=== PATIENT | male | born 1940 | race African-American/Black ===

== ENCOUNTER → 2019-07-24 | Outpatient (CLI) | payer MEDICARE, MEDICAID ==
[~2019-07-24] MED LIST: CEFAZOLIN SODIUM 1000MG/VIAL IV SCH; DOCUSATE SODIUM 100MG CAPSULE PO SCH; DUTA0.5C16 PO; GARL200T PO; HYDROCODONE/ACETAMINOPHEN 10/325MG TABLET PO PRN; HYDROCODONE/ACETAMINOPHEN 5/325MG TABLET PO PRN; LEVOFLOXACIN 500MG TABLET PO SCH; OXYBUTYNIN CHLORIDE 5MG TABLET PO SCH; TAMS-11 PO
== END | disposition home or self-care (01) ==
LOC: LAB 14:14
PROVIDERS: ATTEND Urology
DX: Z01.818 Encounter for other preprocedural examination (principal); Z11.59 Encounter for screening for other viral diseases
CPT/HCPCS: U0003-CS

== ENCOUNTER 2019-07-26 05:39 | Inpatient (IN) | payer MEDICARE, MEDICAID ==
[~2019-07-26] VITALS: Ht 167.6 cm; Wt 87.5 kg
[~2019-07-26 05:39] MED LIST changes: -CEFAZOLIN SODIUM 1000MG/VIAL IV SCH; -DOCUSATE SODIUM 100MG CAPSULE PO SCH; -HYDROCODONE/ACETAMINOPHEN 10/325MG TABLET PO PRN; -HYDROCODONE/ACETAMINOPHEN 5/325MG TABLET PO PRN; +LACTATED RINGERS 1,000 ML IV SCH; -LEVOFLOXACIN 500MG TABLET PO SCH; -OXYBUTYNIN CHLORIDE 5MG TABLET PO SCH
[2019-07-26] MEDS ORDERED: SODIUM CHLORIDE 0.9% 10ML VIAL ONE ×2 (07:31→07:33)
[2019-07-26] MEDS ORDERED: CEFAZOLIN SODIUM 1000MG/VIAL ONE ×2 (07:31→07:51)
[2019-07-26] MEDS ORDERED: LIDOCAINE HCL/PF 1% 10 MG/ML 5ML VIAL ONE (07:31)
[2019-07-26] MEDS ORDERED: PROPOFOL 200MG/20ML VIAL IV ONE (07:31)
[2019-07-26] MEDS ORDERED: FENTANYL CITRATE/PF 50MCG/ML 2ML VIAL ONE (07:31)
[2019-07-26] MEDS ORDERED: MIDAZOLAM HCL 2 MG/2 ML VIAL ONE (07:31)
[2019-07-26] MEDS ORDERED: ROCURONIUM BROMIDE 10MG/ML VIAL 5ML IV ONE (07:32)
[2019-07-26] MEDS ORDERED: GLYCOPYRROLATE 0.2 MG/ML 2ML VIAL ONE (07:32)
[2019-07-26] MEDS ORDERED: SUCCINYLCHOLINE CHLORIDE 200MG/10ML IV ONE (07:32)
[2019-07-26] MEDS ORDERED: EPHEDRINE SULFATE 50MG/ML VIAL ONE (07:33)
[2019-07-26] MEDS ORDERED: DEXAMETHASONE 4MG/ML 1ML VIAL ONE (07:54)
[2019-07-26] MEDS ORDERED: ONDANSETRON HCL 4MG/2ML INJ ONE (08:02)
[2019-07-26] MEDS ORDERED: ONDANSETRON HCL 4MG/2ML INJ IV PRN (09:45)
[2019-07-26] MEDS: HYDROMORPHONE HCL/PF 2MG/ML CPJ IV PRN ×4 (10:11→10:56)
[2019-07-26] MEDS ORDERED: HYDROCODONE/ACETAMINOPHEN 5/325MG TABLET PO PRN (11:00)
[2019-07-26 15:54] LABS: HEMOGLOBIN 13.9 g/dL (14.0-18.0)
[2019-07-26 16:15] VITALS: BP 177/78
[2019-07-26] MEDS ORDERED: ACETAMINOPHEN 325MG TABLET PO PRN (18:30)
[2019-07-26 20:00] VITALS: BP 164/84
[2019-07-26] MEDS ORDERED: LORAZEPAM 1MG TABLET PO PRN (21:00)
[2019-07-26] MEDS ORDERED: CEFAZOLIN SODIUM 1000MG/VIAL IV SCH (22:00)
[2019-07-26] MEDS: HYDROCODONE/ACETAMINOPHEN 10/325MG TABLET PO PRN (22:37)
[2019-07-26] MEDS: CEFAZOLIN 1000MG PREMIX 50 ML IV SCH (23:31)
[2019-07-27] VITALS: BP 163/82
[2019-07-27 06:00] VITALS: BP 155/54
[2019-07-27] MEDS: CEFAZOLIN 1000MG PREMIX 50 ML IV SCH (06:05)
[2019-07-27 06:59] LABS: HEMATOCRIT 38.4 % (42.0-52.0); HEMOGLOBIN 12.8 g/dL (14.0-18.0); MEAN CORPUSCULAR HEMOGLOBIN 29.5 pg (28.0-32.0); MEAN CORPUSCULAR VOLUME 88.4 fL (80.0-94.0); PLATELET 223 x1000/uL (130-400); RED BLOOD CELL COUNT 4.34 mill/uL (4.7-6.1); RED CELL DISTRIBUTION WIDTH 14.1 % (11.6-14.6)
[2019-07-27 08:00] VITALS: BP 159/75
[2019-07-27] MEDS: DOCUSATE SODIUM 250MG CAPSULE PO SCH (09:04)
[2019-07-27] MEDS: OXYBUTYNIN CHLORIDE 5MG TABLET PO SCH ×3 (09:04→21:21)
[2019-07-27 12:00] VITALS: BP 136/58
[2019-07-27] MEDS: LEVOFLOXACIN 500MG TABLET PO SCH (12:01)
[2019-07-27] MEDS: HYDROCODONE/ACETAMINOPHEN 10/325MG TABLET PO PRN (15:13)
[2019-07-27 16:00] VITALS: BP 128/72
[2019-07-27 20:00] VITALS: BP 144/61
[2019-07-28] VITALS: BP 137/60
[2019-07-28 04:00] VITALS: BP 147/67
[2019-07-28] MEDS: OXYBUTYNIN CHLORIDE 5MG TABLET PO SCH ×2 (05:43→13:54)
[2019-07-28 08:00] VITALS: BP 129/54
[2019-07-28] MEDS: DOCUSATE SODIUM 250MG CAPSULE PO SCH (08:53)
[2019-07-28] MEDS: HYDROCODONE/ACETAMINOPHEN 10/325MG TABLET PO PRN (09:15)
[2019-07-28] MEDS: LEVOFLOXACIN 500MG TABLET PO SCH (11:57)
[2019-07-28 12:00] VITALS: BP 115/52
[2019-07-28 16:00] VITALS: BP 132/64
[2019-07-28 16:26] VITALS: BP 132/64
== END 2019-07-28 18:08 | disposition home or self-care (01) | DRG 713 ==
LOC: OR 05:39 → 6EST 05:40
PROVIDERS: ADMIT Urology; ATTEND Urology
PROC: 0TJB8ZZ Inspection of Bladder, Via Natural or Artificial Opening Endoscopic (ICD-10-PCS; principal; 2019-07-26)
PROC: 0VB08ZZ Excision of Prostate, Via Natural or Artificial Opening Endoscopic (ICD-10-PCS; 2019-07-26)
DX: N40.1 Benign prostatic hyperplasia with lower urinary tract symptoms (principal); N13.8 Other obstructive and reflux uropathy; Z80.42 Family history of malignant neoplasm of prostate; Z87.891 Personal history of nicotine dependence; Z79.899 Other long term (current) drug therapy
CPT/HCPCS: 36415; 80051; 85014; 85018; 85027; 88305; J0330; J0690; J1100; J1170; J2250; J2405; J2704; J3010; J3490

== ENCOUNTER → 2021-07-16 | Outpatient (CLI) | payer MEDICARE, MEDICAID ==
[~2021-07-16] MED LIST changes: -DUTA0.5C16 PO; +DUTA0.5C37 PO; -LACTATED RINGERS 1,000 ML IV SCH
== END | disposition home or self-care (01) ==
LOC: RAD 14:51
PROVIDERS: ATTEND Family Medicine
DX: Z01.818 Encounter for other preprocedural examination (principal)
CPT/HCPCS: 71046; 93005